=== PATIENT | male | born 1965 | race Caucasian/White ===

== ENCOUNTER 2019-07-31 23:06 | Emergency (ER) | payer OTHER ==
[~2019-07-31] VITALS: Ht 185.4 cm; Wt 115.8 kg
[~2019-07-31 23:06] MED LIST: ABAC1TAB14 PO; BUPR75TA9 PO; CARV12.579 PO; CETI10TA34 PO; EPZI PO; HYDR-4011 PO; HYDR25TA6 PO; LISI40TA PO; LOSA100T15 PO; LOSA25TA2 PO; MULTI PO; RILP25TA PO; TAMS-14 PO; TENO150T PO; TENO300T8 PO
[2019-07-31 23:16] VITALS: Ht 185.4 cm; Wt 115.8 kg
[2019-08-01] MEDS ORDERED: ONDANSETRON 4 MG INJ IV STA (00:01)
[2019-08-01] MEDS ORDERED: HYDROmorphONE 0.5 MG/0.5 ML SYG IV STA ×2 (00:01→00:54)
[2019-08-01] MEDS ORDERED: KETOROLAC 30 MG INJ IV ONE (00:36)
[2019-08-01 01:56] VITALS: BP 132/82; PULSE 82; RESP 18
== END 2019-08-01 01:57 | disposition home or self-care (01) ==
LOC: E/R 23:06
DX: N20.1 Calculus of ureter (principal); I10 Essential (primary) hypertension; Z21 Asymptomatic human immunodeficiency virus [HIV] infection status; Z87.891 Personal history of nicotine dependence
CPT/HCPCS: 36415; 74176; 80053; 81003; 83690; 85025; 96374; 96375; 96376; 99285; J1170; J1885; J2405